=== PATIENT | female | born 1940 | race Caucasian/White ===

== ENCOUNTER 2016-11-15 05:39 | Inpatient (IN) | payer MEDICARE, BC ==
[~2016-11-15] VITALS: Ht 162.6 cm; Wt 77.0 kg
[~2016-11-15 05:39] MED LIST: ALDACTONE100 MG PO; AMBIEN10 MG PO; CINNAMON500 MG PO; COUMADIN5 MG PO; FUROSEMIDE40 MG PO; HYDROCODON-ACE1 EAC4 PO; KLOR-CON20 MEQ PO; MAG OXIDE PO; MAGOX 400400 MG PO; NEURONTIN400 MG PO; NYSTATIN1 EAC1 TP; OMEGA-3 DPS1000 MG PO; TAMBOCOR DPS50 MG PO; TOPROL XL50 MG PO; TYLENOL EXTRA500 MG PO; TYLENOL325 MG PO; VITAMIN B6100 MG PO; VITAMIN D31000 UNIT PO; ZOLOFT50 MG PO
[2016-11-17] MEDS ORDERED: TYLENOL EXTRA500 M1 PO (18:39)
[2016-11-17] MEDS ORDERED: SUPER B-50 COM1 EACH PO (18:39)
[2016-11-17] MEDS ORDERED: OMEGA-3 DPS1000 MG PO (18:40)
[2016-11-17] MEDS ORDERED: TAMBOCOR DPS50 MG PO (18:40)
[2016-11-17] MEDS ORDERED: NORCO 5-325 TA1 EACH PO ×2 (18:40→18:43)
[2016-11-17] MEDS ORDERED: NEURONTIN DPS400 MG PO (18:40)
[2016-11-17] MEDS ORDERED: CINNAMON500 MG PO (18:40)
[2016-11-17] MEDS ORDERED: MAG-OX400 MG PO (18:41)
[2016-11-17] MEDS ORDERED: KLOR-CON M2020 ME1 PO (18:42)
[2016-11-17] MEDS ORDERED: COUMADIN5 MG PO (18:42)
[2016-11-17] MEDS ORDERED: ULTRAM DPS50 MG PO (18:42)
[2016-11-17] MEDS ORDERED: ZOLOFT DPS50 MG PO (18:42)
[2016-11-17] MEDS ORDERED: VITAMIN D31000 UNIT PO (18:42)
[2016-11-17] MEDS ORDERED: MIRALAX PACKET17 GM PO (18:43)
[2016-11-17] MEDS ORDERED: AMBIEN DPS10 MG PO (18:43)
[2016-11-17] MEDS ORDERED: OXY IR DPS5 MG PO (18:43)
[2016-11-17] MEDS ORDERED: SENOKOT S1 TAB PO (18:43)
--- NOTE | 2016-11-21 05:36 | OR ---
ADMIT: 11/15/2016 RM/LOC: 533 [facility] MR#: [id number] [address] [id number] [place] [address] Operative/Delivery Room Report SEX: F AGE: 76 : 1940 SURGERY DATE: 11/15/2016 SURGEON: Ruel Camejo MD RESEARCH PHARMACIST: Tre Leyva PA-C. PREOPERATIVE DIAGNOSES: 1. Left knee arthritis. 2. Left knee cyst. POSTOPERATIVE DIAGNOSES: 1. Left knee arthritis. 2. Left knee cyst. PROCEDURES PERFORMED: 1. Left total knee arthroplasty. 2. Left cyst evacuation. IMPLANTS: DePuy Attune knee with a 5 femur, 4 tibia and 5 insert and a 38 patella with cement. COMPLICATIONS: None. BLOOD LOSS: One hundred. TOURNIQUET TIME: 64. INDICATIONS: This is a 76-year-old female with chronic left knee arthritis. She has failed conservative management. She also had a large cyst on the medial side of her knee. We had aspirated it before that returned. She wanted surgical fixation for the knee and so she is here for that today. DESCRIPTION OF PROCEDURE: The patient was identified in the preoperative holding area and informed consent was confirmed, site was marked. Brought to the OR, placed supine. Spinal anesthesia was induced. We then did prep and drape in the usual sterile fashion. Time-out was performed. Preop antibiotics were confirmed. We exsanguinated the knee, brought the tourniquet up to 300, made a standard midline incision. Medial parapatellar arthrotomy performed with medial peel, excised the synovium, excised the fat pad, everted the patella, brought it up, drilled for our intramedullary guide of the femur. Placed the intramedullary guide. Made our cut. This is a very nice cut. We then excised the contents of the notch, took out some of the meniscus, subluxed the tibia, the extramedullary guide took 2 off of the medial side and made our cut there. This gave a nice generous cut with good slope and looked very nice so we went ahead and checked our flexion and extension gaps. Seemed to come fully extended with a 5 in there. It was nice and stable. We then put in a cutter box, put our trial implants in and then cut the patella, measured for that, measured a 38, placed that, so we had a 5 femur and a 38 patella. We then tracked very nicely. We were happy with that. I measured ADMIT: 11/15/2016 RM/LOC: 533 [facility] MR#: [id number] [address] [place] [id number] [place] [address] Operative/Delivery Room Report SEX: F AGE: 76 : 1940 the tibia. A 4 fit really nice so I drilled and punched for that and then again the trial components everything was nice and stable, tracked really well with full motion. Irrigated with normal saline. Did an injection with 60 mL of 0.25% Marcaine into the remnant of the meniscus, the notch over the tibia, PCL insertion site, the remnant of the fat pad, the synovium in the suprapatellar area and the quad tendons. Put a little bit in the subcutaneous tissue. We then digitally decompressed the large cyst on the medial side, evacuated all the fluid out of there. Used a rasp to roughen it up a little bit. Used cautery to try and scar down some of the lining of that. Did not fully excise the lining of the cyst, just decompressed it. After this was done, we irrigated copiously with normal saline. Dried it off really well and then mixed our cement and cemented in place our final implants. Once it was hardened, we removed that, took the tourniquet down, got good hemostasis. Placed a final poly which was a 5. This tracked very nicely. Had full flexion and extension. Then closed with one Vicryl for the retinacular layer, 0 Vicryl, 2-0 Vicryl, and the Monocryl for the skin. Then placed in a sterile dressing with a compressive wrap. She was extubated, brought to the postoperative care unit in good condition. No complications. Postoperatively, we will have her through our normal protocol, get her into therapy right away with pain medicine and DVT prophylaxis. Ruel Camejo MD/ aayush JOB #: [id number] CC: Ruel Camejo, Attending Physician Sofie French, Family Physician
--- NOTE | 2016-11-29 09:03 | DS ---
ADMIT: 11/15/2016 RM/LOC: 533 [id number] [id number] [address] [address] [place] [address] General Discharge Summary SEX: F AGE: 76 : 1940 ADMISSION DATE: 11/15/2016 DISCHARGE DATE: 11/17/2016 REASON FOR ADMISSION: Elective left total knee arthroplasty after failing conservative management. PREOPERATIVE DIAGNOSES: 1. Left knee arthritis. 2. Left knee cyst. POSTOPERATIVE DIAGNOSES: 1. Left knee arthritis. 2. Left knee cyst. PROCEDURE PERFORMED: 1. Left total knee arthroplasty. 2. Left cyst excision. SURGEON: Ruel Camejo MD CHAMBER WORKER: Tre Leyva PA-C COMPLICATIONS: None. ESTIMATED BLOOD LOSS: 100 mL. ANESTHESIA: Spinal. ACTIVE MEDICAL PROBLEMS: History of abnormal mammogram, acute duodenal ulcer, back pain, basal cell carcinoma, bilateral edema of lower extremities, left cataract, colostomy, diverticulosis, fibrocystic breast disease, endometrial cancer, rectal cancer, hypertension, vitamin D deficiency, pulmonary hypertension, osteoarthritis, atrial fibrillation, obstructive sleep apnea, and central retinal vein occlusion of the left eye. HOSPITAL COURSE: The patient was admitted on 11/15/2016 for elective left total knee arthroplasty done successfully by Dr. Ruel Camejo, without any complications. The patient tolerated the procedure well. Postoperatively, she did well with pain control with the use of intraoperative analgesics and postoperative oral analgesics, and as expected the patient did suffer from some mild blood loss anemia. Her hemoglobin dropped to 8.5 on 11/17/2016, but she remained hemodynamically stable and did not require blood transfusion. By postoperative day #2, she was stable and doing well with physical therapy. She was safe and ready for discharge with plans for outpatient physical therapy. DISCHARGE MEDICATIONS: 1. Acetaminophen 500 mg three times daily as needed. 2. Vitamin B complex everyday. ADMIT: 11/15/2016 RM/LOC: 533 [facility] MR#: [id number] [facility] [address] [address] [place] [address] General Discharge Summary SEX: F AGE: 76 : 1940 3. Cinnamon bark 500 mg everyday. 4. Fish oil 1000 mg everyday. 5. Flecainide 50 mg twice daily. 6. Gabapentin 400 mg three times daily. 7. Wheeler 5/325 every six hours as needed. 8. Magnesium oxide 40 mg everyday. 9. Potassium chloride 60 mEq everyday. 10.Sertraline 50 mg a day. 11.Tramadol 50 mg every six hours as needed for pain. 12.Vitamin D 3000 units everyday. 13.Warfarin 5 mg everyday. 14.Zolpidem 10 mg at bedtime as needed. 15.MiraLAX 17 g daily as needed. 16.Senokot two tablets twice daily as needed. 17.Oxycodone 5 mg every six hours as needed pain. DISCHARGE INSTRUCTIONS: The patient was discharged with plans for outpatient physical therapy per total knee arthroplasty protocol. Follow up in the orthopedic office in two weeks for wound check and in six weeks with x-ray. Follow up with primary care as directed. TYLER Ronquillo / Ruel Camejo MD / mike JOB #: [id number] CC: Ruel Camejo MD, Attending Physician Sofie French MD, Family Physician
== END 2016-11-17 14:15 | disposition home or self-care (01) | DRG 470 ==
LOC: 5MS 05:39 → WOR 05:39 → 5MS 09:33
PROVIDERS: ADMIT Student in an Organized Health Care Education/Training Program
PROC: 0SRD0J9 Replacement of Left Knee Joint with Synthetic Substitute, Cemented, Open Approach (ICD-10-PCS; principal; 2016-11-15)
PROC: 0S9D0ZZ Drainage of Left Knee Joint, Open Approach (ICD-10-PCS; principal; 2016-11-15)
DX: M17.12 Unilateral primary osteoarthritis, left knee (principal); I95.9 Hypotension, unspecified; I27.2 Other secondary pulmonary hypertension; I48.1 Persistent atrial fibrillation; D62 Acute posthemorrhagic anemia; M25.862 Other specified joint disorders, left knee; I10 Essential (primary) hypertension; M47.9 Spondylosis, unspecified; Z96.651 Presence of right artificial knee joint; G47.33 Obstructive sleep apnea (adult) (pediatric); Z85.828 Personal history of other malignant neoplasm of skin; Z93.3 Colostomy status; Z86.718 Personal history of other venous thrombosis and embolism; Z85.42 Personal history of malignant neoplasm of other parts of uterus; Z85.048 Personal history of other malignant neoplasm of rectum, rectosigmoid junction, and anus; Z79.01 Long term (current) use of anticoagulants; Z96.612 Presence of left artificial shoulder joint; Z82.49 Family history of ischemic heart disease and other diseases of the circulatory system